=== PATIENT | male | born 1960 | race Caucasian/White ===

== ENCOUNTER 2022-01-26 17:04 | Emergency (ER) | payer OTHER ==
[~2022-01-26 17:04] MED LIST: CYMBALTA60 MG PO; DULOXETINE HCL30 MG PO; HYDROCODON-ACE1 EAC2 PO; NORCO 5/3251 EACH PO
[2022-01-26 18:53] LABS: BASOPHIL 0.8 % (0-2); EOSINOPHIL 5.5 % (0-5); HCT 39.2 % (42.0-52.0); HGB 13.8 g/dl (13.2-18.0); LYMPHOCYTE 23.2 % (15-48); MCH 31.1 pg (25.0-31.0); MCHC 35.2 g/dL (32.0-36.0); MCV 88.3 fL (78.0-100.0); MONOCYTE 8.8 % (0-12); MPV 10.4 fL (6.0-9.5); NEUTROPHIL 61.5 % (41-80); NRBC 0; PLT 233 K/uL (150-400); RBC 4.44 M/uL (4.70-6.00); WBC 9.3 K/uL (4.0-10.5)
[2022-01-26 19:09] LABS: BUN/CREAT RATIO (CALC) 14.5 RATIO; CREATININE 1.45 mg/dL (0.67-1.17); POTASSIUM 4.4 mmol/L (3.5-5.1)
[2022-01-26 19:46] LABS: BILIRUBIN NEGATIVE (NEGATIVE); BLOOD NEGATIVE Ery/uL (NEGATIVE); CLARITY CLEAR (CLEAR); COLOR YELLOW (YELLOW); GLUCOSE (U) NORMAL (NORMAL); LEUKOCYTES NEGATIVE Leu/uL (NEGATIVE); NITRITE NEGATIVE (NEGATIVE); PROTEIN NEGATIVE (NEGATIVE); UROBILINOGEN 0.2 mg/dL (0.2-1.0); pH 5.5 (5.0-9.0)
[2022-01-26 19:51] LABS: AMPHETAMINES NEGATIVE (NEGATIVE); BARBITURATES NEGATIVE (NEGATIVE); ECSTASY (MDMA) NEGATIVE (NEGATIVE); MARIJUANA (THC) NEGATIVE (NEGATIVE); METHADONE NEGATIVE (NEGATIVE); OPIATES NEGATIVE (NEGATIVE); OXYCODONE NEGATIVE (NEGATIVE)
[2022-01-26] MEDS ORDERED: BACLOFEN 10MG T10 MG PO (20:56)
== END 2022-01-26 22:00 | disposition home or self-care (01) ==
LOC: FER 17:04
PROVIDERS: Nurse Practitioner Family
DX: G89.29 Other chronic pain (principal); M54.50 Low back pain, unspecified; M25.551 Pain in right hip; R60.0 Localized edema; R73.9 Hyperglycemia, unspecified; I10 Essential (primary) hypertension; Z87.891 Personal history of nicotine dependence; Z98.890 Other specified postprocedural states
CPT/HCPCS: 36415; 72100; 73502; 80048; 80305; 81003; 82009; 83036; 83880; 85025